=== PATIENT | female | born 1960 | race Caucasian/White ===

== ENCOUNTER 2017-09-18 11:06 | Emergency (ER) | payer MEDICAID ==
[~2017-09-18] VITALS: Ht 167.6 cm; Wt 63.5 kg
[~2017-09-18 11:06] MED LIST: ACLI1AER2 IN; ALBUPOW26 XX; ALPR0.5T PO; ASPI81TA27 PO; ESTR1TAB3 TD; FLUO40CA PO; LEVO50TA7 PO; METO50TA7 PO; NOR10T PO; PRAV20TA3 PO
[2017-09-18 11:32] VITALS: BP 165/87
[2017-09-18] MEDS ORDERED: ALPRAZolam 0.5 MG TAB PO ONE (12:00)
== END 2017-09-18 12:11 | disposition home or self-care (01) ==
LOC: ER 11:06 → EDBD 11:06 → ER 12:11
DX: F41.9 Anxiety disorder, unspecified (principal); I10 Essential (primary) hypertension; F32.9 Major depressive disorder, single episode, unspecified; J44.9 Chronic obstructive pulmonary disease, unspecified; Z90.49 Acquired absence of other specified parts of digestive tract; Z90.710 Acquired absence of both cervix and uterus

== ENCOUNTER 2018-08-30 11:10 | Emergency (ER) | payer MEDICAID ==
[~2018-08-30] VITALS: Ht 167.6 cm; Wt 72.6 kg
[~2018-08-30 11:10] MED LIST changes: +MET5XLT PO; -METO50TA7 PO
[2018-08-30] MEDS ORDERED: cloNIDine HCL 0.1 MG TAB ONE (11:26)
[2018-08-30] MEDS ORDERED: cloNIDine HCL 0.1 MG TAB PO ONE (11:30)
[2018-08-30 12:47] VITALS: BP 142/82
== END 2018-08-30 13:02 | disposition home or self-care (01) ==
LOC: ER 11:10
DX: M25.562 Pain in left knee (principal); I10 Essential (primary) hypertension; J44.9 Chronic obstructive pulmonary disease, unspecified; Z88.8 Allergy status to other drugs, medicaments and biological substances; Z88.2 Allergy status to sulfonamides; Z79.899 Other long term (current) drug therapy; Z90.49 Acquired absence of other specified parts of digestive tract; Z90.710 Acquired absence of both cervix and uterus
CPT/HCPCS: 73562

== ENCOUNTER 2018-09-04 10:26 | Emergency (ER) | payer MEDICAID ==
[~2018-09-04] VITALS: Ht 167.6 cm; Wt 72.6 kg
[2018-09-04 10:39] VITALS: BP 198/160
[2018-09-04] MEDS ORDERED: cloNIDine HCL 0.1 MG TAB PO ONE (10:45)
[2018-09-04 11:45] LABS: Urine Bacteria NONE SEEN /hpf (None Seen); Urine Blood Negative /uL (Negative); Urine Specific Gravity 1.007 (1.001-1.035); Urine WBC <1 /hpf (0 - 5)
[2018-09-04 12:09] LABS: Basophils # (auto) 0.1 uL; Basophils % (auto) 1.1 % (0.0-2.0); Eosinophils # (auto) 0.1 uL; Eosinophils % (auto) 1.5 % (0.0-7.0); Hematocrit 45.8 % (36.0-46.0); Hemoglobin 15.3 g/dL (12.2-16.2); Lymphocytes # (auto) 1.7 uL; Lymphocytes % (auto) 20.7 % (10.0-50.0); Mean Corpuscular Hemoglobin 29.9 pg (28.0-32.0); Mean Corpuscular Hgb Conc. 33.5 g/dL (32.0-36.0); Mean Corpuscular Volume 89.3 fL (80.0-100.0); Monocytes # (auto) 0.3 uL; Monocytes % (auto) 4.1 % (0.0-12.0); Neutrophils # (auto) 6.1 uL; Neutrophils % (auto) 72.6 % (37.0-80.0); Platelet Count (auto) 410 10^3/uL (140-450); Red Blood Cells 5.13 10^6/uL (4.0-5.20); Red Cell Distribution Width 13.6 % (11.8-14.3); White Blood Cell 8.4 10^3/uL (4.4-10.8)
[2018-09-04 12:21] LABS: Alcohol, Urine < 3.0 mg/dL (0-5); Amphetamine Screen, Urine NEGATIVE (NEGATIVE); Barbiturate Scree,Urine NEGATIVE (NEGATIVE); Benzodiazephine Screen, Urine NEGATIVE (NEGATIVE); Cannabinoid Screen, Urine POSITIVE (NEGATIVE); Cocaine Screen, Urine NEGATIVE (NEGATIVE); Opiate Scree,Urine NEGATIVE (NEGATIVE); Phencyclidine Screen, Urine NEGATIVE (NEGATIVE)
[2018-09-04 12:29] LABS: Alanine Aminotransferase 33 U/L (13-56); Anion Gap 6 (5-15); Aspartate Aminotransferase 28 U/L (15-37); BUN/Creatinine Ratio 16.9; Blood Urea Nitrogen 12 mg/dL (7-18); Calcium 9.5 mg/dL (8.5-10.1); Carbon Dioxide 26 mmol/L (21-32); Chloride 107 mmol/L (98-107); GFR African American 108 mL/min; GFR Non-African American 89 mL/min; Glucose 98 mg/dL (74-106); INR 0.88 (0.9-1.15); Magnesium 2.4 mg/dL (1.6-2.6); Partial Thromboplastin Time 26.1 sec (23.78-33.04); Potassium 4.1 mmol/L (3.5-5.1); Prothrombin Time 9.5 sec (9.27-12.13); Sodium 139 mmol/L (136-145)
[2018-09-04 12:34] LABS: Alkaline Phosphatase 98 U/L (45-117); Bilirubin, Total 0.4 mg/dL (0.2-1.0); Total Protein 8.2 g/dL (6.4-8.2)
== END 2018-09-04 12:40 | disposition home or self-care (01) ==
LOC: ER 10:26
DX: I10 Essential (primary) hypertension (principal); R42 Dizziness and giddiness; F12.10 Cannabis abuse, uncomplicated; J44.9 Chronic obstructive pulmonary disease, unspecified; Z86.39 Personal history of other endocrine, nutritional and metabolic disease; Z90.49 Acquired absence of other specified parts of digestive tract; Z90.710 Acquired absence of both cervix and uterus; Z88.2 Allergy status to sulfonamides; Z88.8 Allergy status to other drugs, medicaments and biological substances; Z79.899 Other long term (current) drug therapy
CPT/HCPCS: 36415; 70450; 80053; 80307; 81001; 83735; 84484; 85025; 85610; 85730; 93005

== ENCOUNTER 2018-09-09 13:16 | Emergency (ER) | payer MEDICAID ==
[~2018-09-09] VITALS: Ht 167.6 cm; Wt 72.6 kg
[2018-09-09] MEDS ORDERED: cloNIDine HCL 0.1 MG TAB ONE (13:29)
[2018-09-09] MEDS ORDERED: cloNIDine HCL 0.1 MG TAB PO ONE (13:45)
[2018-09-09 14:08] LABS: Basophils # (auto) 0.1 uL; Basophils % (auto) 0.9 % (0.0-2.0); Eosinophils # (auto) 0.3 uL; Hematocrit 44.5 % (36.0-46.0); Lymphocytes # (auto) 2.1 uL; Lymphocytes % (auto) 28.4 % (10.0-50.0); Mean Corpuscular Hgb Conc. 33.8 g/dL (32.0-36.0); Mean Corpuscular Volume 88.9 fL (80.0-100.0); Monocytes # (auto) 0.4 uL; Monocytes % (auto) 5.5 % (0.0-12.0); Neutrophils # (auto) 4.6 uL; Neutrophils % (auto) 61.2 % (37.0-80.0); Nucleated Red Blood Cells % 0.1 %; Platelet Count (auto) 437 10^3/uL (140-450); Red Cell Distribution Width 13.5 % (11.8-14.3); White Blood Cell 7.4 10^3/uL (4.4-10.8)
[2018-09-09 14:55] LABS: Chloride 104 mmol/L (98-107); Potassium 4.7 mmol/L (3.5-5.1); Sodium 138 mmol/L (136-145)
[2018-09-09 14:59] LABS: Albumin 4.2 g/dL (3.4-5.0); Anion Gap 4 (5-15); Blood Urea Nitrogen 12 mg/dL (7-18); Carbon Dioxide 30 mmol/L (21-32); Glucose 81 mg/dL (74-106)
[2018-09-09 15:02] LABS: Alanine Aminotransferase 29 U/L (13-56); Aspartate Aminotransferase 26 U/L (15-37); BUN/Creatinine Ratio 16.7; GFR African American 106 mL/min; GFR Non-African American 88 mL/min
[2018-09-09 15:05] LABS: Alkaline Phosphatase 100 U/L (45-117); Bilirubin, Total 0.3 mg/dL (0.2-1.0); Total Protein 8.2 g/dL (6.4-8.2)
[2018-09-09 17:20] VITALS: BP 137/76
== END 2018-09-09 17:22 | disposition home or self-care (01) ==
LOC: ER 13:16
DX: I10 Essential (primary) hypertension (principal); R42 Dizziness and giddiness; J44.9 Chronic obstructive pulmonary disease, unspecified; Z90.49 Acquired absence of other specified parts of digestive tract; Z90.710 Acquired absence of both cervix and uterus; Z88.2 Allergy status to sulfonamides; Z79.82 Long term (current) use of aspirin; Z79.899 Other long term (current) drug therapy
CPT/HCPCS: 36415; 80053; 84484; 85025

== ENCOUNTER → 2019-10-10 | Outpatient (CLI) | payer MEDICAID ==
[~2019-10-10] MED LIST changes: +ASPI-404 PO; -ASPI81TA27 PO; -MET5XLT PO; +METO-6 PO
== END | disposition home or self-care (01) ==
LOC: Rad HDHVI 13:05
PROVIDERS: ATTEND Internal Medicine Cardiovascular Disease
DX: I30.9 Acute pericarditis, unspecified (principal); R07.9 Chest pain, unspecified; R00.2 Palpitations
CPT/HCPCS: 93306

== ENCOUNTER → 2019-10-17 | Outpatient (CLI) | payer MEDICAID ==
[~2019-10-17] MED LIST changes: -ASPI-404 PO; +ASPI-543 PO
[2019-10-17 15:45] VITALS: BP 134/86
--- NOTE | 2019-10-17 15:45 | NUR ---
PT. TO CLINIC FOR EKG PER DR. GORMAN AFTER UNABLE TO GET PRE OP EKG RESULTS FAXED FROM DR. ANN'S OFFICE OR DR. EDGE'S OFFICE PER PT. REQUEST. PT. STATES SHE HAS SURGERY SCHEDULED FOR THIS TUESDAY BY DR. ANN. PREVIOUS ECHO REVIEWED BY DR. GORMAN AND CLEARED, WITH NL 2D ECHO. PT. WITH NO C/O , EXCEPT, THAT SHE RUSHED TO GET HERE FOR EKG. INITIAL PULSE UPON ARRIVAL WAS 117, QUICKLY DOWN TO 102 WITHIN 3-5 MIN. FOR ORDERED EKG.
--- NOTE | 2019-10-17 15:57 | NUR ---
EKG DONE WITH RESULTS TO DR. GORMAN. NO FURTHER ORDERS FROM MD. COPY OF EKG AND ECHO GIVEN TO PT. FOR RECORDS.
[2019-10-17 16:25] VITALS: BP 130/80
--- NOTE | 2019-10-17 16:25 | NUR ---
Discharge Instructions See e-MAR for any mediations given with this visit. Patient education given on disease process. Patient verbalized understanding. Previous labs reviewed. Patient discharged in stable condition with after care instructions and follow up appointment.
== END | disposition home or self-care (01) ==
LOC: CHF HDHVI 15:41
PROVIDERS: ATTEND Internal Medicine Cardiovascular Disease
DX: I10 Essential (primary) hypertension (principal); I31.9 Disease of pericardium, unspecified
CPT/HCPCS: 93005; G0463

== ENCOUNTER → 2020-01-21 | Outpatient (CLI) | payer MEDICAID ==
[~2020-01-21] VITALS: Ht 167.6 cm; Wt 72.6 kg
== END | disposition home or self-care (01) ==
LOC: Rad HDHVI 14:13
PROVIDERS: ATTEND Internal Medicine Cardiovascular Disease
DX: I10 Essential (primary) hypertension (principal); E78.00 Pure hypercholesterolemia, unspecified; R07.9 Chest pain, unspecified; Z82.49 Family history of ischemic heart disease and other diseases of the circulatory system; Z88.2 Allergy status to sulfonamides; Z88.8 Allergy status to other drugs, medicaments and biological substances
CPT/HCPCS: 78452; 93017; 96374; A9500

== ENCOUNTER 2021-08-27 15:06 | Emergency (ER) | payer MEDICAID ==
[~2021-08-27] VITALS: Ht 167.6 cm; Wt 72.6 kg
[~2021-08-27 15:06] MED LIST changes: -ESTR1TAB3 TD; +ESTR1TAB6 TD
[2021-08-27 16:35] LABS: Anion Gap 6 (5-15); Aspartate Aminotransferase 30 U/L (15-37); BUN/Creatinine Ratio 16.5; Basophils # (auto) 0.1 10 ^3/uL (0-0.2); Basophils % (auto) 0.7 % (0.0-2.0); Blood Alcohol < 3.0 mg/dL (0-5); Blood Urea Nitrogen 14 mg/dL (7-18); Calcium 9.6 mg/dL (8.5-10.1); Carbon Dioxide 26 mmol/L (21-32); Chloride 106 mmol/L (98-107); Eosinophils # (auto) 0.1 10 ^3/uL (0-0.8); Eosinophils % (auto) 1.7 % (0.0-7.0); GFR African American 87 mL/min; GFR Non-African American 72 mL/min; Glucose 93 mg/dL (74-106); Hematocrit 42.9 % (36.0-46.0); Hemoglobin 14.7 g/dL (12.2-16.2); Lymphocytes # (auto) 1.3 10 ^3/uL (0.4-5.4); Lymphocytes % (auto) 14.5 % (10.0-50.0); Mean Corpuscular Hemoglobin 29.7 pg (28.0-32.0); Mean Corpuscular Hgb Conc. 34.4 g/dL (32.0-36.0); Mean Corpuscular Volume 86.4 fL (80.0-100.0); Monocytes # (auto) 0.4 10 ^3/uL (0-1.3); Monocytes % (auto) 4.9 % (0.0-12.0); Neutrophils # (auto) 6.9 10 ^3/uL (1.6-8.6); Neutrophils % (auto) 78.2 % (37.0-80.0); Nucleated Red Blood Cells % 0.2 %; Potassium 4.3 mmol/L (3.5-5.1); Red Blood Cells 4.97 10^6/uL (4.0-5.20); Red Cell Distribution Width 14.5 % (11.8-14.3); Sodium 138 mmol/L (136-145); White Blood Cell 8.8 10^3/uL (4.4-10.8)
[2021-08-27 16:37] LABS: Alanine Aminotransferase 31 U/L (13-56); Alkaline Phosphatase 118 U/L (45-117); Bilirubin, Total 0.6 mg/dL (0.2-1.0); Total Protein 7.9 g/dL (6.4-8.2)
[2021-08-27 17:21] LABS: Alcohol, Urine < 3.0 mg/dL (0-10); Amphetamine Screen, Urine NEGATIVE (NEGATIVE); Barbiturate Scree,Urine NEGATIVE (NEGATIVE); Benzodiazephine Screen, Urine NEGATIVE (NEGATIVE); Cannabinoid Screen, Urine NEGATIVE (NEGATIVE); Cocaine Screen, Urine NEGATIVE (NEGATIVE)
[2021-08-27 17:29] LABS: Opiate Scree,Urine POSITIVE (NEGATIVE); Phencyclidine Screen, Urine NEGATIVE (NEGATIVE)
[2021-08-27 17:34] LABS: Urine Bacteria FEW /hpf (None Seen); Urine Blood Negative /uL (Negative); Urine Mucus FEW (None Seen); Urine Specific Gravity 1.021 (1.001-1.035); Urine WBC 3 /hpf (0 - 5)
[2021-08-27 18:24] VITALS: BP 123/76
== END 2021-08-27 18:38 | disposition home or self-care (01) ==
LOC: ER 15:06 → EDBD 15:06 → ER 18:38
DX: R55 Syncope and collapse (principal); J44.9 Chronic obstructive pulmonary disease, unspecified; Z90.49 Acquired absence of other specified parts of digestive tract; Z90.710 Acquired absence of both cervix and uterus; Z88.2 Allergy status to sulfonamides; Z88.6 Allergy status to analgesic agent
CPT/HCPCS: 36415; 70450; 80053; 80307; 80320; 81001; 84484; 85025; 93005

== ENCOUNTER 2022-08-02 12:22 | Inpatient (IN) | payer MEDICAID ==
[~2022-08-02] VITALS: Ht 15.2 cm; Wt 72.9 kg
[2022-08-02] MEDS ORDERED: ALBUTEROL SULF 2.5 MG/0.5ML(0.5%) NEB SOLN HHN ONE (12:45)
[2022-08-02] MEDS ORDERED: methylPREDNISolone SOD SUCC 125 MG/2 ML VL IV ONE (12:45)
[2022-08-02] MEDS ORDERED: IPRATROPIUM BROM 0.5 MG/2.5ML INH SOL HHN ONE (12:45)
[2022-08-02 13:13] LABS: Basophils # (auto) 0 10 ^3/uL (0-0.2); Basophils % (auto) 0.7 % (0.0-2.0); Eosinophils # (auto) 0.2 10 ^3/uL (0-0.8); Eosinophils % (auto) 2.7 % (0.0-7.0); Hematocrit 39.7 % (36.0-46.0); Hemoglobin 13.4 g/dL (12.2-16.2); Lymphocytes # (auto) 1.9 10 ^3/uL (0.4-5.4); Lymphocytes % (auto) 27.3 % (10.0-50.0); Mean Corpuscular Hemoglobin 29.6 pg (28.0-32.0); Mean Corpuscular Hgb Conc. 33.6 g/dL (32.0-36.0); Mean Corpuscular Volume 88.2 fL (80.0-100.0); Monocytes # (auto) 0.7 10 ^3/uL (0-1.3); Monocytes % (auto) 9.7 % (0.0-12.0); Neutrophils # (auto) 4.2 10 ^3/uL (1.6-8.6); Neutrophils % (auto) 59.6 % (37.0-80.0); Nucleated Red Blood Cells % 0.1 %; Red Blood Cells 4.51 10^6/uL (4.0-5.20); Red Cell Distribution Width 13.9 % (11.8-14.3)
[2022-08-02 13:43] LABS: Albumin 3.9 g/dL (3.4-5.0); Potassium 4.2 mmol/L (3.5-5.1)
[2022-08-02 13:48] LABS: BUN/Creatinine Ratio 16.9; Bilirubin, Total 0.6 mg/dL (0.2-1.0); Total Protein 7.8 g/dL (6.4-8.2)
[2022-08-02 14:41] LABS: Urine Bacteria NONE SEEN /hpf (None Seen); Urine Blood Negative /uL (Negative); Urine Specific Gravity 1.008 (1.001-1.035); Urine WBC 1 /hpf (0 - 5)
[2022-08-02] MEDS ORDERED: ALBUTEROL SULF 2.5 MG/0.5ML(0.5%) NEB SOLN NEB PRN (15:45)
[2022-08-02] MEDS ORDERED: PANTOPRAZOLE 40 MG/10 ML VIAL INJ IV ONE (15:45)
[2022-08-02] MEDS ORDERED: ONDANSETRON HCL 4 MG/2 ML VIAL IV PRN (15:45)
[2022-08-02] MEDS: SODIUM CHLORIDE 0.9% 1,000 ML IV SCH (16:55)
[2022-08-02 17:59] VITALS: BP 107/64
[2022-08-02] MEDS: ALBUTEROL SULF 2.5 MG/0.5ML(0.5%) NEB SOLN NEB SCH ×2 (19:25→22:29)
[2022-08-02] MEDS: IPRATROPIUM BROM 0.5 MG/2.5ML INH SOL NEB SCH ×2 (19:25→22:29)
[2022-08-02] MEDS ORDERED: TEMAZEPAM 15 MG CAP PO ONE (22:30)
[2022-08-02] MEDS: methylPREDNISolone SOD SUCC 125 MG/2 ML VL IV SCH (22:34)
[2022-08-02] MEDS: METOPROLOL SUCCINATE XL 50 MG TAB PO SCH (22:41)
[2022-08-02] MEDS: ACETAMINOPHEN 325 MG TAB PO PRN (22:46)
[2022-08-03] MEDS: IPRATROPIUM BROM 0.5 MG/2.5ML INH SOL NEB SCH ×6 (01:15→22:24)
[2022-08-03] MEDS: ALBUTEROL SULF 2.5 MG/0.5ML(0.5%) NEB SOLN NEB SCH ×6 (01:15→22:24)
[2022-08-03 06:17] LABS: Basophils # (auto) 0 10 ^3/uL (0-0.2); Basophils % (auto) 0.1 % (0.0-2.0); Eosinophils # (auto) 0 10 ^3/uL (0-0.8); Hematocrit 35.9 % (36.0-46.0); Lymphocytes # (auto) 0.5 10 ^3/uL (0.4-5.4); Lymphocytes % (auto) 9.5 % (10.0-50.0); Mean Corpuscular Hemoglobin 29.4 pg (28.0-32.0); Mean Corpuscular Hgb Conc. 33.4 g/dL (32.0-36.0); Mean Corpuscular Volume 87.8 fL (80.0-100.0); Monocytes # (auto) 0.1 10 ^3/uL (0-1.3); Monocytes % (auto) 2.4 % (0.0-12.0); Neutrophils # (auto) 4.7 10 ^3/uL (1.6-8.6); Red Blood Cells 4.09 10^6/uL (4.0-5.20); Red Cell Distribution Width 14.2 % (11.8-14.3); White Blood Cell 5.4 10^3/uL (4.4-10.8)
[2022-08-03 06:42] LABS: Albumin 3.3 g/dL (3.4-5.0); Potassium 3.9 mmol/L (3.5-5.1)
[2022-08-03 06:46] LABS: BUN/Creatinine Ratio 24.1; Calcium 9.3 mg/dL (8.5-10.1)
[2022-08-03 06:49] LABS: Bilirubin, Total 0.3 mg/dL (0.2-1.0); Total Protein 7.2 g/dL (6.4-8.2)
[2022-08-03] MEDS ORDERED: HYDROcodone-ACET 5/325MG TAB PO ONE (07:15)
[2022-08-03] MEDS: LEVOTHYROXINE SODIUM 50 MCG TAB PO SCH (07:21)
[2022-08-03] MEDS: SODIUM CHLORIDE 0.9% 1,000 ML IV SCH (08:25)
[2022-08-03] MEDS: methylPREDNISolone SOD SUCC 125 MG/2 ML VL IV SCH ×4 (10:00→22:25)
[2022-08-03] MEDS ORDERED: ESTRADIOL 1 MG TAB PO SCH (10:00)
[2022-08-03] MEDS: PANTOPRAZOLE 40 MG/10 ML VIAL INJ IV SCH (10:44)
[2022-08-03] MEDS: PRAVASTATIN SODIUM 20 MG TAB PO SCH (10:46)
[2022-08-03] MEDS: ASPirin-EC 81 mg tab PO SCH (10:46)
[2022-08-03] MEDS: METOPROLOL SUCCINATE XL 50 MG TAB PO SCH ×2 (10:47→22:26)
[2022-08-03] MEDS: ENOXAPARIN SOD 40 MG/0.4 ML SYRINGE SC SCH (10:47)
[2022-08-03] MEDS: FLUoxetine HCL 20 MG CAP PO SCH (10:48)
[2022-08-03 15:21] VITALS: BP 167/91
[2022-08-03] MEDS ORDERED: hydrALAZINE HCL 20 MG/ML VL IV ONE (15:30)
[2022-08-03] MEDS: ACETAMINOPHEN 325 MG TAB PO PRN (15:34)
[2022-08-03 16:05] VITALS: BP 167/91
[2022-08-03 16:27] VITALS: BP 167/91
[2022-08-03 16:30] VITALS: BP 132/73
[2022-08-03] MEDS ORDERED: PANT40T PO (16:34)
[2022-08-03] MEDS ORDERED: SERT-160 PO (16:34)
[2022-08-03] MEDS ORDERED: MET50T PO (16:34)
[2022-08-03] MEDS ORDERED: MORP1TAB14 PO (16:34)
[2022-08-03] MEDS ORDERED: TEMA30CA PO (16:34)
[2022-08-03] MEDS ORDERED: LEVO100T8 PO (16:34)
[2022-08-03] MEDS ORDERED: CLON0.2T PO (16:34)
[2022-08-03] MEDS ORDERED: ATOR40TA52 PO (16:34)
[2022-08-03] MEDS ORDERED: LID35TP TOP (16:34)
[2022-08-03] MEDS ORDERED: GABA400C11 PO (16:34)
[2022-08-03] MEDS ORDERED: CYCL-839 (16:34)
[2022-08-03] MEDS ORDERED: NAP500T PO (16:34)
[2022-08-03] MEDS ORDERED: NICO21DI37 TOP (16:34)
[2022-08-03 21:07] VITALS: BP 145/80
[2022-08-03] MEDS ORDERED: TEMAZEPAM 15 MG CAP PO PRN (22:00)
[2022-08-03] MEDS: TEMAZEPAM 15 MG CAP PO PRN (23:13)
[2022-08-03] MEDS: HYDROcodone-ACET 5/325MG TAB PO PRN (23:13)
[2022-08-04] VITALS (7 sets, daily range): BP systolic 119–155; BP diastolic 65–90
[2022-08-04] MEDS: SODIUM CHLORIDE 0.9% 1,000 ML IV SCH ×2 (01:05→17:44)
[2022-08-04 05:58] LABS: Calcium 9.6 mg/dL (8.5-10.1); Potassium 4.6 mmol/L (3.5-5.1)
[2022-08-04 06:00] LABS: BUN/Creatinine Ratio 32.8
[2022-08-04 06:20] LABS: Basophils # (auto) 0 10 ^3/uL (0-0.2); Basophils % (auto) 0.2 % (0.0-2.0); Eosinophils # (auto) 0 10 ^3/uL (0-0.8); Hematocrit 38.7 % (36.0-46.0); Hemoglobin 12.8 g/dL (12.2-16.2); Lymphocytes % (auto) 5.5 % (10.0-50.0); Mean Corpuscular Hgb Conc. 33.2 g/dL (32.0-36.0); Mean Corpuscular Volume 87.6 fL (80.0-100.0); Monocytes # (auto) 0.4 10 ^3/uL (0-1.3); Monocytes % (auto) 2.6 % (0.0-12.0); Neutrophils # (auto) 15.8 10 ^3/uL (1.6-8.6); Neutrophils % (auto) 91.7 % (37.0-80.0); Red Blood Cells 4.42 10^6/uL (4.0-5.20); Red Cell Distribution Width 14.6 % (11.8-14.3); White Blood Cell 17.3 10^3/uL (4.4-10.8)
[2022-08-04] MEDS: LEVOTHYROXINE SODIUM 50 MCG TAB PO SCH (06:25)
[2022-08-04] MEDS: ALBUTEROL SULF 2.5 MG/0.5ML(0.5%) NEB SOLN NEB SCH ×5 (06:33→21:58)
[2022-08-04] MEDS: IPRATROPIUM BROM 0.5 MG/2.5ML INH SOL NEB SCH ×5 (06:33→21:58)
[2022-08-04] MEDS: ENOXAPARIN SOD 40 MG/0.4 ML SYRINGE SC SCH (11:20)
[2022-08-04] MEDS: PANTOPRAZOLE 40 MG/10 ML VIAL INJ IV SCH (11:20)
[2022-08-04] MEDS: methylPREDNISolone SOD SUCC 125 MG/2 ML VL IV SCH ×2 (11:21→21:25)
[2022-08-04] MEDS: FLUoxetine HCL 20 MG CAP PO SCH (11:22)
[2022-08-04] MEDS: ASPirin-EC 81 mg tab PO SCH (11:22)
[2022-08-04] MEDS: METOPROLOL SUCCINATE XL 50 MG TAB PO SCH ×2 (11:22→21:25)
[2022-08-04] MEDS: PRAVASTATIN SODIUM 20 MG TAB PO SCH (11:23)
[2022-08-04] MEDS: HYDROcodone-ACET 5/325MG TAB PO PRN (11:23)
[2022-08-04] MEDS ORDERED: guaiFENesin-DM 100/10mg/5ml SYR PO PRN (13:45)
[2022-08-04] MEDS: TEMAZEPAM 15 MG CAP PO PRN (21:25)
[2022-08-05] VITALS (8 sets, daily range): BP systolic 126–171; BP diastolic 67–94
[2022-08-05] MEDS: IPRATROPIUM BROM 0.5 MG/2.5ML INH SOL NEB SCH ×6 (02:06→22:08)
[2022-08-05] MEDS: ALBUTEROL SULF 2.5 MG/0.5ML(0.5%) NEB SOLN NEB SCH ×6 (02:06→22:08)
[2022-08-05] MEDS: LEVOTHYROXINE SODIUM 50 MCG TAB PO SCH (06:41)
[2022-08-05] MEDS: SODIUM CHLORIDE 0.9% 1,000 ML IV SCH ×2 (06:47→09:46)
[2022-08-05] MEDS: methylPREDNISolone SOD SUCC 125 MG/2 ML VL IV SCH ×2 (09:39→21:15)
[2022-08-05] MEDS: PANTOPRAZOLE 40 MG/10 ML VIAL INJ IV SCH (09:39)
[2022-08-05] MEDS: ENOXAPARIN SOD 40 MG/0.4 ML SYRINGE SC SCH (09:39)
[2022-08-05] MEDS: ASPirin-EC 81 mg tab PO SCH (09:39)
[2022-08-05] MEDS: FLUoxetine HCL 20 MG CAP PO SCH (09:39)
[2022-08-05] MEDS: PRAVASTATIN SODIUM 20 MG TAB PO SCH (09:40)
[2022-08-05] MEDS: METOPROLOL SUCCINATE XL 50 MG TAB PO SCH ×2 (09:40→21:16)
[2022-08-05] MEDS ORDERED: PRED20TA2 PO (10:04)
[2022-08-05] MEDS ORDERED: hydrALAZINE HCL 20 MG/ML VL IV ONE (12:30)
[2022-08-05] MEDS ORDERED: cloNIDine HCL 0.1 MG TAB PO ONE (14:45)
[2022-08-05] MEDS: TEMAZEPAM 15 MG CAP PO PRN (21:16)
[2022-08-06] MEDS: IPRATROPIUM BROM 0.5 MG/2.5ML INH SOL NEB SCH ×4 (02:00→13:55)
[2022-08-06] MEDS: ALBUTEROL SULF 2.5 MG/0.5ML(0.5%) NEB SOLN NEB SCH ×4 (02:00→13:55)
[2022-08-06 02:47] VITALS: BP 126/67
[2022-08-06 04:56] VITALS: BP 163/81
[2022-08-06] MEDS: LEVOTHYROXINE SODIUM 50 MCG TAB PO SCH (06:17)
[2022-08-06] MEDS: PANTOPRAZOLE 40 MG/10 ML VIAL INJ IV SCH (08:50)
[2022-08-06] MEDS: ENOXAPARIN SOD 40 MG/0.4 ML SYRINGE SC SCH (08:50)
[2022-08-06] MEDS: methylPREDNISolone SOD SUCC 125 MG/2 ML VL IV SCH (08:50)
[2022-08-06] MEDS: ASPirin-EC 81 mg tab PO SCH (08:51)
[2022-08-06] MEDS: FLUoxetine HCL 20 MG CAP PO SCH (08:51)
[2022-08-06] MEDS: PRAVASTATIN SODIUM 20 MG TAB PO SCH (08:52)
[2022-08-06 09:04] VITALS: BP 166/79
[2022-08-06] MEDS ORDERED: cloNIDine HCL 0.1 MG TAB PO SCH (10:00)
[2022-08-06] MEDS: METOPROLOL SUCCINATE XL 50 MG TAB PO SCH (10:36)
[2022-08-06] MEDS ORDERED: hydrALAZINE HCL 20 MG/ML VL IV PRN (11:00)
[2022-08-06] MEDS ORDERED: amLODIPine BESYLATE 5 MG TAB PO SCH (11:00)
[2022-08-06 13:00] VITALS: BP 165/87
[2022-08-06] MEDS ORDERED: AMLO-496 PO (15:45)
[2022-08-06 16:55] VITALS: BP 157/80
== END 2022-08-06 17:24 | disposition home or self-care (01) | DRG 140 ==
LOC: ER 12:22 → EDBD 12:22 → OVERFLOW 15:33 → WEST WING 08-03 15:06
PROVIDERS: ADMIT Nurse Practitioner Family; ATTEND Internal Medicine Pulmonary Disease
DX: J44.1 Chronic obstructive pulmonary disease with (acute) exacerbation (principal); J96.01 Acute respiratory failure with hypoxia; J98.11 Atelectasis; I10 Essential (primary) hypertension; E03.9 Hypothyroidism, unspecified; F17.210 Nicotine dependence, cigarettes, uncomplicated; Z20.822 Contact with and (suspected) exposure to COVID-19; I16.0 Hypertensive urgency; F41.9 Anxiety disorder, unspecified; E78.5 Hyperlipidemia, unspecified; Z90.710 Acquired absence of both cervix and uterus; Z90.49 Acquired absence of other specified parts of digestive tract; Z71.6 Tobacco abuse counseling
CPT/HCPCS: 36415; 36600; 71045; 80048; 80053; 81001; 82805; 85025; 85379; 87426; 94640; 96374; C9113; G0378

== ENCOUNTER 2023-04-29 16:52 | Inpatient (IN) | payer OTHER, MEDICAID ==
[~2023-04-29] VITALS: Ht 167.6 cm; Wt 76.0 kg
[~2023-04-29 16:52] MED LIST changes: -ALBUPOW26 XX; -ALPR0.5T PO; +AMLO1TAB23 PO; -ASPI-543 PO; +ATOR40TA52 PO; +CLON0.2T PO; +CYCL-839; -ESTR1TAB6 TD; -FLUO40CA PO; +GABA-1251 PO; +LEVO100T8 PO; -LEVO50TA7 PO; +LID35TP TOP; +MET50T PO; -METO-6 PO; +MORP1TAB14 PO; +NAP500T PO; +NICO21DI37 TOP; -NOR10T PO; +PANT40T PO; -PRAV20TA3 PO; +PRED20TA2 PO; +SERT-160 PO; +TEMA30CA PO
[2023-04-29] MEDS ORDERED: HYDROcodone-ACET 5/325MG TAB PO ONE (20:45)
[2023-04-29 21:36] LABS: Basophils # (auto) 0 10 ^3/uL (0-0.2); Basophils % (auto) 0.5 % (0.0-2.0); Eosinophils # (auto) 0.2 10 ^3/uL (0-0.8); Eosinophils % (auto) 3.2 % (0.0-7.0); Hematocrit 37.8 % (36.0-46.0); Hemoglobin 12.6 g/dL (12.2-16.2); Lymphocytes # (auto) 1.9 10 ^3/uL (0.4-5.4); Lymphocytes % (auto) 32.9 % (10.0-50.0); Mean Corpuscular Hgb Conc. 33.5 g/dL (32.0-36.0); Mean Corpuscular Volume 86.7 fL (80.0-100.0); Monocytes # (auto) 0.4 10 ^3/uL (0-1.3); Monocytes % (auto) 7.2 % (0.0-12.0); Neutrophils # (auto) 3.2 10 ^3/uL (1.6-8.6); Neutrophils % (auto) 56.2 % (37.0-80.0); Nucleated Red Blood Cells % 0.2 %; Red Blood Cells 4.35 10^6/uL (4.0-5.20); White Blood Cell 5.7 10^3/uL (4.4-10.8)
[2023-04-29 21:42] LABS: Alanine Aminotransferase 49 U/L (7-40); Albumin 4.7 g/dL (3.2-4.8); Alkaline Phosphatase 118 U/L (46-116); Anion Gap 6 (5-15); Aspartate Aminotransferase 54 U/L (13-40); BUN/Creatinine Ratio 9.9 (10.0-20.0); Bilirubin, Total 0.3 mg/dL (0.2-1.0); Blood Urea Nitrogen 8 mg/dL (9-23); Calcium 9.5 mg/dL (8.7-10.4); Carbon Dioxide 29 mmol/L (20-30); Chloride 104 mmol/L (98-107); Glucose 92 mg/dL (74-106); Potassium 4.3 mmol/L (3.5-5.1); Sodium 139 mmol/L (136-145); Total Protein 7.4 g/dL (5.7-8.2)
[2023-04-29 21:51] LABS: INR 0.97 (0.9-1.15); Partial Thromboplastin Time 26.9 SEC (24.5-34.5); Prothrombin Time 10.2 sec (9.3-11.8)
[2023-04-29] MEDS ORDERED: ENOXAPARIN SOD 80 MG/0.8ML SYRINGE SC ONE (22:00)
[2023-04-29] MEDS ORDERED: GABA-339 PO (23:17)
[2023-04-29] MEDS ORDERED: TEMA30CA PO (23:17)
[2023-04-29] MEDS ORDERED: SERT200C PO (23:17)
[2023-04-29 23:19] VITALS: PULSE 76; RESP 17; O2SAT 94
[2023-04-30] VITALS (8 sets, daily range): BP systolic 146–171; BP diastolic 85–98; PULSE 83–94; RESP 15–20; TEMP 97.7–99.1; O2SAT 91–96
[2023-04-30] MEDS ORDERED: MORPHINE SULFATE INJ 2 MG/ml SYRG IV ONE (00:15)
[2023-04-30] MEDS ORDERED: ONDANSETRON HCL 4 MG/2 ML VIAL IV PRN (03:45)
[2023-04-30] MEDS ORDERED: DOCUSATE SOD 100 MG CAP PO PRN (03:45)
[2023-04-30] MEDS ORDERED: IBUPROFEN 600 MG TAB PO PRN (03:45)
[2023-04-30] MEDS ORDERED: NITROGLYCERIN 0.4 MG SL TAB SL PRN (03:45)
[2023-04-30] MEDS ORDERED: HYDROcodone-ACET 5/325MG TAB PO PRN (03:45)
[2023-04-30] MEDS ORDERED: hydrALAZINE HCL 20 MG/ML VL IV PRN (04:15)
[2023-04-30 05:01] LABS: Basophils # (auto) 0 10 ^3/uL (0-0.2); Basophils % (auto) 0.7 % (0.0-2.0); Eosinophils # (auto) 0.3 10 ^3/uL (0-0.8); Eosinophils % (auto) 4.4 % (0.0-7.0); Hematocrit 38.8 % (36.0-46.0); Hemoglobin 12.8 g/dL (12.2-16.2); Lymphocytes # (auto) 2.7 10 ^3/uL (0.4-5.4); Lymphocytes % (auto) 37.3 % (10.0-50.0); Mean Corpuscular Hemoglobin 28.6 pg (28.0-32.0); Mean Corpuscular Volume 86.7 fL (80.0-100.0); Monocytes # (auto) 0.6 10 ^3/uL (0-1.3); Monocytes % (auto) 8.3 % (0.0-12.0); Neutrophils # (auto) 3.5 10 ^3/uL (1.6-8.6); Neutrophils % (auto) 49.3 % (37.0-80.0); Nucleated Red Blood Cells % 0.1 %; Red Blood Cells 4.47 10^6/uL (4.0-5.20); Red Cell Distribution Width 14.3 % (11.8-14.3); White Blood Cell 7.1 10^3/uL (4.4-10.8)
[2023-04-30 05:16] LABS: Alanine Aminotransferase 50 U/L (7-40); Albumin 4.6 g/dL (3.2-4.8); Alkaline Phosphatase 118 U/L (46-116); Anion Gap 9 (5-15); Aspartate Aminotransferase 50 U/L (13-40); BUN/Creatinine Ratio 9.9 (10.0-20.0); Blood Urea Nitrogen 9 mg/dL (9-23); Calcium 10.2 mg/dL (8.5-10.1); Carbon Dioxide 28 mmol/L (20-30); Chloride 104 mmol/L (98-107); Glucose 106 mg/dL (74-106); Potassium 4.3 mmol/L (3.5-5.1); Sodium 141 mmol/L (136-145)
[2023-04-30 05:17] LABS: Bilirubin, Total 0.2 mg/dL (0.2-1.0); Total Protein 7.2 g/dL (5.7-8.2)
[2023-04-30] MEDS: SODIUM CHLOR 0.9% PF (SALINE LOCK) 10ML VIAL/SYR IV SCH ×3 (06:06→21:57)
[2023-04-30] MEDS: MORPHINE SULFATE INJ 2 MG/ml SYRG IV PRN ×4 (06:10→22:52)
[2023-04-30] MEDS ORDERED: LEVOTHYROXINE SODIUM 100 MCG TAB PO SCH (07:00)
[2023-04-30] MEDS: ENOXAPARIN SOD 80 MG/0.8ML SYRINGE SC SCH ×2 (12:28→21:57)
[2023-04-30] MEDS ORDERED: SERTRALINE HCL 50 MG TAB PO ONE (12:30)
[2023-04-30] MEDS ORDERED: amLODIPine BESYLATE 5 MG TAB PO ONE (12:30)
[2023-04-30] MEDS: METOPROLOL TARTRATE 50 MG TAB PO SCH ×2 (14:27→22:03)
[2023-04-30] MEDS: ATORVASTATIN 20 MG TAB PO SCH (21:56)
[2023-04-30] MEDS ORDERED: TEMAZEPAM 15 MG CAP PO PRN (22:00)
[2023-05-01] VITALS (8 sets, daily range): BP systolic 135–161; BP diastolic 71–95; PULSE 62–88; RESP 16–20; TEMP 98–98.6; O2SAT 94–98
[2023-05-01] MEDS: LEVOTHYROXINE SODIUM 25 MCG TAB PO SCH (06:29)
[2023-05-01] MEDS: LEVOTHYROXINE SODIUM 112 MCG TAB PO SCH (06:30)
[2023-05-01] MEDS: SODIUM CHLOR 0.9% PF (SALINE LOCK) 10ML VIAL/SYR IV SCH ×3 (06:30→21:53)
[2023-05-01] MEDS: MORPHINE SULFATE INJ 2 MG/ml SYRG IV PRN ×3 (06:36→21:40)
[2023-05-01 06:52] LABS: Basophils # (auto) 0 10 ^3/uL (0-0.2); Basophils % (auto) 0.9 % (0.0-2.0); Eosinophils # (auto) 0.3 10 ^3/uL (0-0.8); Eosinophils % (auto) 5.2 % (0.0-7.0); Hemoglobin 13.3 g/dL (12.2-16.2); Lymphocytes # (auto) 1.7 10 ^3/uL (0.4-5.4); Lymphocytes % (auto) 34.6 % (10.0-50.0); Mean Corpuscular Hemoglobin 28.7 pg (28.0-32.0); Mean Corpuscular Hgb Conc. 33.3 g/dL (32.0-36.0); Monocytes # (auto) 0.5 10 ^3/uL (0-1.3); Monocytes % (auto) 9.2 % (0.0-12.0); Neutrophils # (auto) 2.5 10 ^3/uL (1.6-8.6); Neutrophils % (auto) 50.1 % (37.0-80.0); Nucleated Red Blood Cells % 0.2 %; Red Blood Cells 4.65 10^6/uL (4.0-5.20); Red Cell Distribution Width 14.1 % (11.8-14.3); White Blood Cell 4.9 10^3/uL (4.4-10.8)
[2023-05-01 07:07] LABS: Alanine Aminotransferase 46 U/L (7-40); Alkaline Phosphatase 114 U/L (46-116); Anion Gap 8 (5-15); Blood Urea Nitrogen 7 mg/dL (9-23); Calcium 9.6 mg/dL (8.7-10.4); Carbon Dioxide 27 mmol/L (20-30); Chloride 106 mmol/L (98-107); Glucose 95 mg/dL (74-106); Potassium 3.7 mmol/L (3.5-5.1); Sodium 141 mmol/L (136-145)
[2023-05-01 07:08] LABS: Albumin 4.4 g/dL (3.2-4.8); Aspartate Aminotransferase 44 U/L (13-40)
[2023-05-01 07:09] LABS: Bilirubin, Total 0.4 mg/dL (0.2-1.0); Total Protein 7.1 g/dL (5.7-8.2)
[2023-05-01] MEDS: amLODIPine BESYLATE 5 MG TAB PO SCH (09:37)
[2023-05-01] MEDS: METOPROLOL TARTRATE 50 MG TAB PO SCH ×2 (09:37→21:45)
[2023-05-01] MEDS: ENOXAPARIN SOD 80 MG/0.8ML SYRINGE SC SCH ×2 (09:38→21:46)
[2023-05-01] MEDS: SERTRALINE HCL 50 MG TAB PO SCH (17:51)
[2023-05-01] MEDS: ATORVASTATIN 20 MG TAB PO SCH (21:45)
[2023-05-02] VITALS (9 sets, daily range): BP systolic 135–142; BP diastolic 76–93; PULSE 60–86; RESP 16–18; TEMP 97.7–99.1; O2SAT 92–95
[2023-05-02] MEDS: MORPHINE SULFATE INJ 2 MG/ml SYRG IV PRN ×4 (05:40→21:21)
[2023-05-02] MEDS: SODIUM CHLOR 0.9% PF (SALINE LOCK) 10ML VIAL/SYR IV SCH ×3 (05:41→22:00)
[2023-05-02] MEDS: LEVOTHYROXINE SODIUM 25 MCG TAB PO SCH (05:41)
[2023-05-02] MEDS: LEVOTHYROXINE SODIUM 112 MCG TAB PO SCH (05:41)
[2023-05-02] MEDS: ENOXAPARIN SOD 80 MG/0.8ML SYRINGE SC SCH ×2 (09:36→21:20)
[2023-05-02] MEDS: SERTRALINE HCL 50 MG TAB PO SCH (09:37)
[2023-05-02] MEDS: METOPROLOL TARTRATE 50 MG TAB PO SCH ×2 (09:37→21:20)
[2023-05-02] MEDS: amLODIPine BESYLATE 5 MG TAB PO SCH (09:37)
[2023-05-02] MEDS: ATORVASTATIN 20 MG TAB PO SCH (21:20)
[2023-05-03] MEDS: MORPHINE SULFATE INJ 2 MG/ml SYRG IV PRN ×3 (01:14→10:00)
[2023-05-03 05:00] VITALS: BP 134/75; PULSE 71; RESP 17; TEMP 96.4; O2SAT 93
[2023-05-03] MEDS: LEVOTHYROXINE SODIUM 25 MCG TAB PO SCH (05:49)
[2023-05-03] MEDS: LEVOTHYROXINE SODIUM 112 MCG TAB PO SCH (05:49)
[2023-05-03] MEDS: SODIUM CHLOR 0.9% PF (SALINE LOCK) 10ML VIAL/SYR IV SCH (06:00)
[2023-05-03 07:36] VITALS: PULSE 71
[2023-05-03 08:05] VITALS: BP 132/81; PULSE 76; RESP 20; TEMP 98.5; O2SAT 93
[2023-05-03 08:51] VITALS: BP 132/81; PULSE 76; RESP 20; TEMP 98.5; O2SAT 93
[2023-05-03] MEDS: amLODIPine BESYLATE 5 MG TAB PO SCH (09:48)
[2023-05-03] MEDS: SERTRALINE HCL 50 MG TAB PO SCH (09:48)
[2023-05-03] MEDS: METOPROLOL TARTRATE 50 MG TAB PO SCH (09:49)
[2023-05-03] MEDS: ENOXAPARIN SOD 80 MG/0.8ML SYRINGE SC SCH (09:49)
[2023-05-03] MEDS ORDERED: APIX5TAB PO (10:09)
[2023-05-03] MEDS ORDERED: LEV100T PO (10:09)
[2023-05-03] MEDS ORDERED: LEV50T PO (10:09)
[2023-05-03 11:30] VITALS: BP 132/81; PULSE 76; RESP 20; TEMP 98.5; O2SAT 93
[2023-05-03 12:40] VITALS: BP 138/81; PULSE 77; RESP 16; TEMP 98.3; O2SAT 96
== END 2023-05-03 13:33 | disposition home or self-care (01) | DRG 300 ==
LOC: ER 16:52 → TELE 04-30 03:42 → TELE-EAST 04-30 09:17
PROVIDERS: ADMIT Nurse Practitioner Family; ATTEND Family Medicine
DX: I82.4Z1 Acute embolism and thrombosis of unspecified deep veins of right distal lower extremity (principal); J44.1 Chronic obstructive pulmonary disease with (acute) exacerbation; E03.9 Hypothyroidism, unspecified; F32.A Depression, unspecified; G47.00 Insomnia, unspecified; F17.210 Nicotine dependence, cigarettes, uncomplicated; I10 Essential (primary) hypertension; M71.22 Synovial cyst of popliteal space [Baker], left knee; M17.12 Unilateral primary osteoarthritis, left knee; M25.462 Effusion, left knee; Z88.2 Allergy status to sulfonamides; Z88.8 Allergy status to other drugs, medicaments and biological substances; Z86.718 Personal history of other venous thrombosis and embolism; Z90.49 Acquired absence of other specified parts of digestive tract; F41.9 Anxiety disorder, unspecified
CPT/HCPCS: 36415; 73562; 73721; 80053; 84443; 85025; 85610; 85730; 93970; 96372; 96374; G0378

== ENCOUNTER 2024-05-03 16:02 | Emergency (ER) | payer OTHER, MEDICAID ==
[~2024-05-03] VITALS: Ht 170.2 cm; Wt 80.7 kg
[~2024-05-03 16:02] MED LIST changes: +APIX5TAB PO; -GABA-1251 PO; +GABA-339 PO; +LEVO-848 PO; +LEVO-849 PO; -SERT-160 PO; +SERT200C PO
--- NOTE | 2024-05-03 16:30 | ED.PDOC ---
Musculoskeletal HPI Comments 64 y.o female presents to the ED for a chief complaint of left leg pain that presented one day ago. Patient describes pain as sharp, constant, and has no modifying factors. Patient reports pain is similar to previous episode she's had in which she was diagnosed with a DVT. No redness, swelling or numbness reported. Patient denies any SOB or chest pain. Patient denies any history of low back concerns. Vital signs were stable on arrival. Chief Complaint: Lower Extremity Time Seen by MD: 16:20 Primary Care Provider: JOHN Reviewed Notes: Nurses Notes, Medications, Allergies Allergies: Coded Allergies: Sulfa Drugs (Verified Allergy, Unknown, 08/30/18) Prednisone (Verified Adverse Reaction, Unknown, MOOD CHANGES, 08/02/22) Home Meds Active Scripts Apixaban Base (ELIQUIS) 5 Mg Tab, 10 MG PO BID for 7 Days, #14 TAB 10MG BID X 7 DAYS THEN 5MG PO BID FOR AT LEAST 6 MONTHS FOR DVT/PE TREATMENT Prov:BROOKE CHILDERS MD 05/03/23 Apixaban Base (ELIQUIS) 5 Mg Tab, 5 MG PO BID, #180 TAB Prov:BROOKE CHILDERS MD 05/03/23 Levothyroxine Sodium (SYNTHROID TABLET) 100 Mcg Tb, 1 TAB PO DAILY, #90 TAB 3 Refills Prov:BROOKE CHILDERS MD 05/03/23 Levothyroxine Sodium (SYNTHROID TABLET) 50 Mcg Tb, 1 TAB PO DAILY, #90 TAB 3 Refills Prov:BROOKE CHILDERS MD 05/03/23 Amlodipine Besylate (Amlodipine Besylate) 10 Mg Tab, 1 TAB PO DAILY, #30 TAB 5 Refills Prov:ANTONIO WHITE MD 08/06/22 Prednisone (Prednisone) 20 Mg Tab, 20 MG PO BID for 5 Days, #10 TAB Prov:ANTONIO WHITE MD 08/05/22 Reported Medications Sertraline HCl (Sertraline Hydrochloride) 200 Mg Cap, 200 MG PO BID, CAP 04/29/23 Gabapentin (Gabapentin) 600 Mg Tab, 600 MG PO, MG 04/29/23 Temazepam (Temazepam) 30 Mg Cap, 15 MG PO, CAP 04/29/23 Nicotine (Nicotine Transdermal Syst) 21 Mg/24 Hr Dis, 1 PATCH TOP DAILY 08/03/22 Pantoprazole Sodium Sesquihydr (Pantoprazole Sodium) 40 Mg Tab, 1 TAB PO DAILY 08/03/22 Lidocaine Hcl (Lidocaine) 5 % Oin, TOP 08/03/22 Naproxen (NAPROSYN TABLET) 500 Mg Tb, 1 TAB PO BID 08/03/22 Cyclobenzaprine Hcl (Cyclobenzaprine Hcl) 10 Mg Tab, 1 DAILY 08/03/22 Morphine Sulfate (Morphine Sulfate Er) 60 Mg Tab, 1 TAB PO BIDPRN PRN for PAIN SCALE 7 THRU 10 08/03/22 Clonidine Hydrochloride (Clonidine Hcl) 0.2 Mg Tab, 1 TAB PO 08/03/22 Atorvastatin Calcium (ATORVASTATIN CALCIUM) 40 Mg Tab, 1 TAB PO DAILY 08/03/22 Levothyroxine Sodium (Levothyroxine Sodium) 100 Mcg Tab, 1 TAB PO DAILY 08/03/22 Metoprolol Tartrate (LOPRESSOR TABLET) 50 Mg Tb, 1 TAB PO BID 08/03/22 Aclidinium [place] (TUDORZA PRESSAIR) 400 Mg/Act Aer, 400 MG IN, AER 07/09/15 Information Source: Patient Mode of Arrival: Ambulatory Location: Left Extremity Location: Leg Timing: Days Prehospital treatment: None Severity: Moderate Able to Move Extremity: Yes Bear Weight: Fully Pain: Moderate Hand Dominance: Right Mechanism: Spontaneous Circumstances: Spontaneous Onset of Symptoms: Spontaneous Symptoms: Pain DVT Risk Factors: DVT Last Tetanus: UTD Associated signs and symptoms: Leg pain Past Medical History PAST MEDICAL HISTORY: Anxiety, COPD, Depression, HTN, Thyroid Past Medical History (Other): DVT Surgical History: Appendectomy, Cholecystectomy, Hysterectomy PEST CONTROLLER History: Denies all PEST CONTROLLER Hx Family History Family History: No family hx of HTN Social History Smoker: Cigarettes, Less Than 1 Pack/Day Alcohol: Occasionally Drugs: Denies Drug Use Lives In: Home Constitutional: denies: chills, diaphoresis, fatigue, fever, malaise, sweats, weakness, others EENTM: denies: blurred vision, double vision, ear bleeding, ear discharge, ear drainage, ear pain, ear ringing, eye pain, eye redness, hearing loss, mouth pain, mouth swelling, nasal discharge, nose bleeding, nose congestion, nose pain, photophobia, tearing, throat pain, throat swelling, voice changes, others Respiratory: denies: cough, hemoptysis, orthopnea, SOB at rest, shortness of breath, SOB with excertion, stridor, wheezing, others Cardiovascular: denies: chest pain, dizzy spells, diaphoresis, Dyspnea on exertion, edema, irregular heart beat, left arm pain, lightheadedness, palpitations, PND, syncope, others Gastrointestinal: denies: abdomen distended, abdominal pain, blood streaked bowels, constipated, diarrhea, dysphagia, difficulty swallowing, hematemesis, melena, nausea, poor appetite, poor fluid intake, rectal bleeding, rectal pain, vomiting, others Genitourinary: denies: abnormal vagina bleeding, burning, dyspareunia, dysuria, flank pain, frequency, hematuria, incontinence, pain, , vagina discharge, urgency, others Neurological: denies: dizziness, fainting, headache, left sided numbness, left sided weakness, numbness, paresthesia, pre-existing deficit, right sided num bness, right sided weakness, seizure, speech problems, tingling, tremors, weakness, others Musculoskeletal: reports: others (left leg pain ); denies: back pain, gout, joint pain, joint swelling, muscle pain, muscle stiffness, neck pain Integumetry: denies: bruises, change in color, change in hair/nails, dryness, laceration, lesions, lumps, rash, wounds, others Allergic/Immunocompromised: denies: Difficulty Healing, Frequent Infections, Hives, Itching, others Hematologic/Lymphatic: denies: anemia, blood clots, easy bleeding, easy bruising, swollen glands, others Endocrine: denies: excessive hunger, excessive sweating, excessive thirst, excessive urination, flushing, intolerance to cold, intolerance to heat, unexplained weight gain, unexplained weight loss, others Psychiatric: denies: anxiety, bipolar disorder, depression, hopeless, panic disorder, schizophrenia, sleepless, suicidal, others All Other Systems: Reviewed and Negative Physical Exam General Appearance: Moderate Distress (Due to left leg pain concerns.), Normal HEENT: Normal ENT Inspection, Pharynx Normal, TMs Normal Neck: Full Range of Motion, Non-Tender, Normal, Normal Inspection Respiratory: Chest Non-Tender, Lungs Clear, No Accessory Muscle Use, No Respiratory Distress, Normal Breath Sounds Cardiovascular: No Edema, No JVD, No Murmur, No Gallop, Normal Peripheral Pulses, Regular Rate/Rhythm Breast Exam: Deferred Gastrointestinal: No Organomegaly, Non Tender, No Pulsatile Mass, Normal Bowel Sounds, Soft Genitalia: Deferred Pelvic: Deferred Rectal: Deferred Extremities: Other (Relatively unremarkable exam with the left leg. No edema or erythema. Range of motion displayed. Patient complains of pain on the lateral aspect and posterior aspect extending towards and into her calf. No signs of trauma.) Neurologic: Alert, No Motor Deficits, Normal Affect, No Sensory Deficits Cerebellar Function: Normal Reflexes: Normal Skin: Dry, Normal Color, Warm Lymphatic: No Adenopathy Was a procedure done? Was a procedure done?: No Differential Diagnosis EXT Differential Diagnosis: Deep Vein Thrombosis, Fracture, Sprain, Gout, Strain, Other (Lumbar radiculopathy) X-Ray, Labs, Meds, VS Vital Signs Date Time Temp Pulse Resp B/P (MAP) Pulse Ox O2 Delivery O2 Flow Rate FiO2 05/03/24 17:39 98.4 96 17 111/62 (78) 97 98.4 05/03/24 17:39 96 17 98 Room Air 05/03/24 16:22 98.3 154 18 154/87 (109) 95 Current Medications Medications (Trade) Dose Ordered Sig/Jet Route Start Time Stop Time Status Last Admin Acetaminophen/ Hydrocodone Bitart ([place] 5/325MG Tab) 1 tab ONCE ONCE PO 05/03/24 16:30 05/03/24 16:31 DC 05/03/24 17:33 X-Ray, Labs, Meds, VS Comment All studies performed the ED today were reviewed by me personally. Doppler studies of left leg were unremarkable for any DVT formation. Imaging studies of lumbar spine showed degenerative disc disease and spinal straightening. Patient appears to be suffering from some sciatica related to that lumbar spine concern. Advised patient utilize medication as needed and additionally, follow up with primary care provider for long-term management and possible orthopedic referral. Time of 1ST Reevaluation: 18:43 Reevaluation 1ST: Improved Consultation: PCP Patient Education/Counseling: Diagnosis, Treatment, Prognosis Family Education/Counseling: Diagnosis, Treatment, No Family Present Departure 1 Departure Time of Disposition: 18:43 Impression: Primary Impression: Degenerative joint disease (DJD) of lumbar spine Additional Impression: Sciatica associated with disorder of lumbar spine Disposition: 01 HOME / SELF CARE / HOMELESS Condition: Stable Additional Instructions: Advised patient utilize pain medication as needed for symptomatic relief. If symptoms continue, patient will need to follow up with primary care provider for long-term evaluation and management as well as possible orthopedic referral. e-Prescriptions Hydrocodone-Acetaminophen (Hydrocodone Bitartrate/AC 5-325 mg) 1 Tab Tab 1 TAB PO Q6HP PRN, #20 TAB Prov: LAVELLE SWIFT PAC 05/03/24 Ibuprofen (Ibuprofen) 800 Mg Tab 1 TAB PO Q8HP PRN, #20 TAB 0 Refills Prov: LAVELLE SWIFT PAC 05/03/24 Discharged With: Self, Friend Critical Care Note Critical Care Time?: No Stability Stability form required: No I personally scribed for LAVELLE SWIFT PAC ([email or web address]) on 05/03/24 at 16:30. Electronically submitted by Katelyn Palacio ([facility]). LAVELLE SWIFT PAC May 03, 2024 16:30
--- NOTE | 2024-05-03 17:08 | DVH ---
CLINICAL INDICATION: Radiculopathy TECHNIQUE: 2 radiographic views of the lumbar spine were obtained. Comparison: None FINDINGS/IMPRESSION: 5 [id number] lumbar-type vertebrae. Mild levoconvex curvature of the lumbar spine. Mild loss o f superior vertebral body height of T12 of unknown chronicity. 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 Otherwise, no evidence of acute traumatic fractures or spondylolisthesis. Moderate to severe degenerative changes at L1-L2 and L2-L3. Status post cholecystectomy. IVC filter is noted in place. Large amount of fecal material within the visualized colon. Partially visualized right hip replacement hardware.
--- NOTE | 2024-05-03 17:24 | DVH ---
Procedure: US LT Lower DVT Study Date and Requested Time: 05/03/2024 04:48 PM History: DVT rule out Comparison: US BILAT LOWER DVT on DOS: 04/29/23 Technique: Multiple high resolution perdue-scale images with and without compression obtained of the le ft lower extremity veins, including the common femoral vein, deep femoral vein, proximal mid and dist al superficial femoral vein, and popliteal vein. Additional limited images of the greater saphenous v ein also obtained. Augmentation performed as indicated. Color and spectral doppler flow images obtain ed as indicated. Findings: No visible intraluminal venous thrombus. No evidence of incompressibility or abnormal color or spectr al Doppler flow visualized in the left lower extremity veins including, the common femoral vein, deep femoral vein, proximal mid and distal superficial femoral vein, and popliteal vein. Greater saphenou s vein grossly unremarkable. Impression: No sonographic evidence of left lower extremity deep venous thrombosis.
[2024-05-03] MEDS: HYDROcodone-ACET 5/325MG TAB PO ONE (17:33)
[2024-05-03] MEDS ORDERED: HYDR-4902 PO (18:45)
[2024-05-03] MEDS ORDERED: IBUP-1456 PO (18:45)
[2024-05-03 18:53] VITALS: BP 146/86; PULSE 76; RESP 16; TEMP 98.7; O2SAT 96
== END 2024-05-03 18:55 | disposition home or self-care (01) ==
LOC: ER 16:02
DX: M47.816 Spondylosis without myelopathy or radiculopathy, lumbar region (principal); M54.32 Sciatica, left side; I10 Essential (primary) hypertension; F41.9 Anxiety disorder, unspecified; F32.A Depression, unspecified; J44.9 Chronic obstructive pulmonary disease, unspecified; F17.210 Nicotine dependence, cigarettes, uncomplicated; Z86.718 Personal history of other venous thrombosis and embolism; Z90.49 Acquired absence of other specified parts of digestive tract; Z90.710 Acquired absence of both cervix and uterus; Z88.2 Allergy status to sulfonamides; Z88.8 Allergy status to other drugs, medicaments and biological substances; Z79.01 Long term (current) use of anticoagulants; Z79.52 Long term (current) use of systemic steroids; Z79.899 Other long term (current) drug therapy
CPT/HCPCS: 72100; 93971